=== PATIENT | male | born 1970 | race Two or more races ===

== ENCOUNTER 2019-09-21 12:22 | Emergency (ER) | payer OTHER ==
[~2019-09-21] VITALS: Ht 180.3 cm; Wt 87.0 kg
[2019-09-21 12:30] VITALS: BP 122/70
[2019-09-21] MEDS ORDERED: KETOROLAC 30MG/ML VIAL IM ONE (13:15)
[2019-09-21] MEDS ORDERED: CYCLOBENZAPRINE 10MG TABLET PO ONE (13:15)
== END 2019-09-21 14:52 | disposition home or self-care (01) ==
LOC: ER 12:22
DX: S16.1XXA Strain of muscle, fascia and tendon at neck level, initial encounter (principal); S29.012A Strain of muscle and tendon of back wall of thorax, initial encounter; M54.30 Sciatica, unspecified side; V43.52XA Car driver injured in collision with other type car in traffic accident, initial encounter; Y93.89 Activity, other specified; Y92.488 Other paved roadways as the place of occurrence of the external cause
CPT/HCPCS: 72070; 96372; 99283; J1885